=== PATIENT | female | born 2000 | race Caucasian/White ===

== ENCOUNTER 2022-02-09 13:09 | Outpatient (CLI) | payer BC, SELFPAY ==
--- NOTE | ~2022-02-09 | US_ITS ---
EXAMINATION: US OB <= 14 weeks fetus DATE: 02/09/2022 14:13 INDICATION: Establish viability and dating of during first trimester TECHNIQUE: Real-time pelvic ultrasound utilizing transabdominal probe was performed. The willem serrano radiologist was not present for the study. COMPARISON: None. FINDINGS: The uterus measures 12.0 x 7.9 x 4.7 cm. There is an intrauterine gestational sac. A yolk sac and fe quinten pole are identified. The crown rump length measures 2.0 cm, which correlates with an estimated ge stational age of 8 weeks and 4 days. heart motion is identified measuring 168 beats per minute (bpm) by M-mode Doppler. The right ovary measures 4.3 x 1.8 x 2.7 cm. The left ovary measures 3.0 x 2.7 x 2.5 cm. Vascular zayra w identified in both ovaries on color Doppler. There is no free fluid in the pelvis. IMPRESSION: 1. Single living fetus with heart rate of 168 bpm. 2. Gestational age by ultrasound of 8 weeks 4 day(s) +/- 5 day(s) with ultrasound estimated date of delivery (BRIGID) of 09/17/2022. Reviewed, dictated and finalized at location B. IMPRESSION: 1. Single living fetus with heart rate of 168 bpm. 2. Gestational age by ultrasound of 8 weeks 4 day(s) +/- 5 day(s) with ultraso und estimated date of delivery (BRIGID) of 09/17/2022.
== END 2022-02-09 13:10 | disposition home or self-care (01) ==
PROVIDERS: Visit Provider Student in an Organized Health Care Education/Training Program
DX: Z34.91 Encounter for supervision of normal pregnancy, unspecified, first trimester (principal); Z3A.08 8 weeks gestation of pregnancy
CPT/HCPCS: 76801

== ENCOUNTER 2022-06-29 15:52 | Outpatient (CLI) | payer MEDICAID, SELFPAY ==
[2022-06-29 17:04] LABS: Basophils Percent Auto 0.3 % (0.2-1.2); Eosinophils Percent Auto 0.1 % (0-4.4); Hemoglobin 10.3 g/dL (12.0-15.0); Immature Granulocyte Absolute 0.05 K/mm3 (0.00-0.031); Immature Granulocyte Percent A 0.5 % (0-0.5); Lymphocytes Absolute Auto 2.42 K/mm3 (0.9-3.2); Lymphocytes Percent Auto 21.9 % (18.3-44.2); Mean Corpuscular HGB Conc 33.2 g/dl (32-36); Mean Corpuscular Hemoglobin 29.9 pg (26-34); Mean Corpuscular Volume 89.9 fl (80-100); Mean Platelet Volume 10.2 fl (7.4-10.4); Monocytes Absolute Auto 0.8 K/mm3 (0.1-0.6); Monocytes Percent Auto 6.8 % (2.6-8.5); Neutrophils Absolute Auto 7.8 K/mm3 (1.3-6.7); Neutrophils Percent Auto 70.4 % (45.5-73.1); Platelet Count Result 234 k/mm3 (150-375); Red Blood Count 3.45 M/mm3 (4.2-5.4); Red Cell Distribution Width 12.8 % (11.5-14.5); White Blood Count 11.1 K/mm3 (4.5-10.0)
[2022-06-29 17:10] LABS: Glucose 1 Hour PP 50gm Dose 127 mg/dL
== END 2022-06-29 15:53 | disposition home or self-care (01) ==
PROVIDERS: PCP Nurse Practitioner Family; Visit Provider Student in an Organized Health Care Education/Training Program
DX: Z34.02 Encounter for supervision of normal first pregnancy, second trimester (principal); Z3A.00 Weeks of gestation of pregnancy not specified
CPT/HCPCS: 36415; 82947; 85025

== ENCOUNTER 2022-07-13 14:33 | Outpatient (CLI) | payer MEDICAID, SELFPAY ==
[2022-07-13 15:04] LABS: Basophils Percent Auto 0.3 % (0.2-1.2); Hematocrit 33.4 % (37.0-47.0); Hemoglobin 10.9 g/dL (12.0-15.0); Immature Granulocyte Absolute 0.08 K/mm3 (0.00-0.031); Immature Granulocyte Percent A 0.9 % (0-0.5); Immature Platelet Fraction Pct 4.6 % (0.9-11.2); Lymphocytes Absolute Auto 2.14 K/mm3 (0.9-3.2); Lymphocytes Percent Auto 22.9 % (18.3-44.2); Mean Corpuscular HGB Conc 32.6 g/dl (32-36); Mean Corpuscular Hemoglobin 29.6 pg (26-34); Mean Corpuscular Volume 90.8 fl (80-100); Mean Platelet Volume 10.2 fl (7.4-10.4); Monocytes Absolute Auto 0.7 K/mm3 (0.1-0.6); Monocytes Percent Auto 7.9 % (2.6-8.5); Neutrophils Absolute Auto 6.4 K/mm3 (1.3-6.7); Platelet Count Result 244 k/mm3 (150-375); Red Blood Count 3.68 M/mm3 (4.2-5.4); Red Cell Distribution Width 12.8 % (11.5-14.5); White Blood Count 9.4 K/mm3 (4.5-10.0)
[2022-07-13 15:47] LABS: HIV 1/2 Ab P24 Ag Result Negative (Negative)
[2022-07-13 16:51] LABS: Rapid Plasma Reagin Non-Reactive (NonReactive)
== END 2022-07-13 14:34 | disposition home or self-care (01) ==
LOC: ANHLAB 14:35
PROVIDERS: PCP Nurse Practitioner Family; Visit Provider Student in an Organized Health Care Education/Training Program
DX: Z34.03 Encounter for supervision of normal first pregnancy, third trimester (principal); Z3A.00 Weeks of gestation of pregnancy not specified
CPT/HCPCS: 36415; 85025; 85055; 86592; 86703; G0432